=== PATIENT | female | born 1995 | race Caucasian/White ===

== ENCOUNTER 2023-08-15 12:04 | Emergency (ER) | payer OTHER, SELFPAY ==
[2023-08-15 12:10] VITALS: BP 148/69; PULSE 75; RESP 16; TEMP 37.1; O2SAT 100; BMI 44.7
--- NOTE | 2023-08-15 12:21 | ED_ITS ---
HPI - Abdominal Pain General Chief Complaint: Abdominal Pain Stated Complaint: ABD/BACK PAIN Time Seen by Provider: 08/15/23 12:16 Source: patient Mode of arrival: walk-in History of Present Illness HPI narrative: Sudden onset pain across the low back and bilateral lower abdomen that began around 8am this morning and was associated with nausea and vomiting. No urinary symptoms. Pain is now in the mid low back and the suprapubic areas. No relief with Excedrin at home. No fever or chills. No recent injury or illness. No history of kidney stones, UC or Crohns disease. Related Data Previous Rx's Medication Instructions Recorded hyoscyamine sulfate 0.125 mg 0.125 mg PO Q6H PRN abdominal pain 08/15/23 sublingual tablet (Levsin/SL) #20 tabs ondansetron 4 mg disintegrating 4 mg PO Q6H PRN nausea and 08/15/23 tablet vomiting #20 tabs Allergies Allergy/AdvReac Type Severity Reaction Status Date / Time No Known Drug Allergies Allergy Verified 08/15/23 12:13 Exam Narrative Exam Narrative: Nurses notes and vital signs reviewed and patient is not hypoxic. afebrile General: Well-appearing and in no apparent distress. Skin: Warm, dry, no pallor noted. No rash. Head: Normocephalic, atraumatic. Neck: Supple, non-tender. Eye: Pupils are equal, round and EOMI. No scleral icterus. Cardiovascular: Regular Rate and Rhythm without murmur, gallop or rub. Respiratory: No accessory muscle use or respiratory distress. Lungs are clear to auscultation, no wheezing, rales or rhonchi Back: No midline thoracic or CVA tenderness. Midline lower lumbar vertebral tenderness. Musculoskeletal: normal ROM, no calf or popliteal tenderness, no lower extremity edema/swelling GI: Abdomen is soft, non-distended. Normal bowel sounds. No masses appreciated. Suprapubic tenderness to palpation only. No rebound, guarding, or rigidity noted. Neurological: A&O x4. No cranial nerve dysfunction observed. No truncal ataxia. Moves all extremities. Sensation intact. Psychiatric: Cooperative and interactive. Normal mood and affect. Constitutional Vital Signs, click to edit/add: Last Vital Signs Temp 98.8 F 08/15/23 12:10 Pulse 75 08/15/23 12:10 Resp 16 08/15/23 12:10 BP 148/69 H 08/15/23 12:10 Pulse Ox 100 08/15/23 12:10 Course Vital Signs Vital signs: Vital Signs Temperature 98.8 F 08/15/23 12:10 Pulse Rate 75 08/15/23 12:10 Respiratory Rate 16 08/15/23 12:10 Blood Pressure 148/69 H 08/15/23 12:10 Pulse Oximetry 100 08/15/23 12:10 Temperature 98.8 F 08/15/23 12:10 Pulse Rate 75 08/15/23 12:10 Respiratory Rate 16 08/15/23 12:10 Blood Pressure 148/69 H 08/15/23 12:10 Pulse Oximetry 100 08/15/23 12:10 MDM - Abdominal Pain MDM Narrative Medical decision making narrative: Peripheral IV established and blood drawn and sent for testing. I also asked the patient to give us a urine sample. Patient was ordered to receive normal saline IV fluid, IV Toradol and IV Zofran. She was ordered to undergo noncontrast CT scanning of the abdomen & pelvis. WBC elevated at 12.8. CMP unremarkable and Lipase negative. UA also negative. CT abd/pelvis revealed no worrisome pathology or other findings to account for the patient's pain. She was informed of results and discharged home with prescriptions for Levsin and Zofran and recommendation to maintain a soft bland diet until symptoms resolve. ED return if she worsens. Lab Data Attestation: I reviewed the patient's lab results. Labs: Lab Results 08/15/23 08/15/23 Range/Units 12:25 12:29 WBC 12.8 H (4.0-11.0) 10^3/uL RBC 4.93 (4.20-5.40) 10^6/uL Hgb 12.9 (12.0-16.0) g/dL Hct 41.7 (36.0-48.0) % MCV 84.6 (81.0-99.0) fL MCH 26.2 L (26.7-34.0) pg MCHC 30.9 (29.9-35.2) g/dL RDW 13.9 (11.0-15.0) % Plt Count 405 (150-450) 10^3/uL MPV 10.1 (9.5-13.5) fL Neut % (Auto) 70.0 (43.0-75.0) % Lymph % (Auto) 22.6 (20.5-60.0) % [place] % (Auto) 5.7 (1.7-12.0) % Eos % (Auto) 1.0 (0.9-7.0) % Baso % (Auto) 0.4 (0.2-2.0) % Neut # (Auto) 9.0 H (1.4-6.5) 10^3/uL Lymph # (Auto) 2.9 (1.2-3.8) 10^3/uL [place] # (Auto) 0.7 (0.3-0.8) 10^3/uL Eos # (Auto) 0.1 (0.0-0.7) 10^3/uL Baso # (Auto) 0.1 (0.0-0.1) 10^3/uL Abs Immat Gran (auto) 0.04 H (0.00-0.03) 10^3/uL Imm/Tot Granulo (auto) 0.3 (0.0-0.5) % Sodium 142 (136-145) mmol/L Potassium 4.3 (3.5-5.1) mmol/L Chloride 107 (98-107) mmol/L Carbon Dioxide 24.7 (21.0-32.0) mmol/L Anion Gap 14.6 BUN 16.0 (7.0-18.0) mg/dL Creatinine 1.07 H (0.55-1.02) mg/dL Est GFR ( Amer) >60 (>=60) Est GFR (Non-Af Amer) >60 (>=60) BUN/Creatinine Ratio 15.0 Glucose 121 H (74-106) mg/dL Calcium 9.3 (8.5-10.1) mg/dL Total Bilirubin 0.2 (0.2-1.0) mg/dL AST 12 L (15-37) U/L ALT 25 (14-59) U/L Alkaline Phosphatase 69 (46-116) U/L Total Protein 7.6 (6.4-8.2) g/dL Albumin 3.6 (3.4-5.0) g/dL Globulin 4.0 g/dL Albumin/Globulin Ratio 0.9 Lipase 32.0 (16.0-77.0) U/L Urine Color Lt. yellow (YELLOW) Urine Clarity Clear (CLEAR) Urine pH 6.0 (5.0-9.0) Ur Specific [place] 1.010 (1.005-1.025) Urine Protein Negative (NEG/TRACE) mg/dL Urine Glucose (UA) Negative (NEGATIVE) mg/dL Urine Ketones Negative (NEGATIVE) mg/dL Urine Occult Blood Negative (NEGATIVE) Urine Nitrite Negative (NEGATIVE) Urine Bilirubin Negative (NEGATIVE) Urine Urobilinogen 0.2 (0.2-1.0) EU/dL Ur Leukocyte Esterase Negative (NEGATIVE) Imaging Data CT scan - abdomen: Radiologist's impression: ITS Impressions Abdomen/Pelvis CT 08/15/23 13:00 IMPRESSION: No acute abnormality in the current study. Electronically authenticated by: BLU CADET Date: 08/15/2023 13:17 Discharge Plan Discharge Chief Complaint: Abdominal Pain Clinical Impression: Abdominal pain Patient Disposition: Home, Self-Care Time of Disposition Decision: 13:43 Prescriptions / Home Meds: New hyoscyamine sulfate [Levsin/SL] 0.125 mg tablet, sublingual 0.125 mg PO Q6H PRN (Reason: abdominal pain) Qty: 20 0RF ondansetron 4 mg tablet,disintegrating 4 mg PO Q6H PRN (Reason: nausea and vomiting) Qty: 20 0RF Instructions: Abdominal Pain (ED) Stand Alone Forms: Portal Instructions Referrals: Physician,Non-Staff, MD [Primary Care Provider] - 1 week
[2023-08-15 12:41] LABS: Bilirubin Urine NEGATIVE (NEGATIVE); Blood Urine NEGATIVE (NEGATIVE); Clarity Urine CLEAR (CLEAR); Color Urine LT. YELLOW (YELLOW); Glucose Urine UA NEGATIVE (NEGATIVE); Ketones Urine NEGATIVE (NEGATIVE); Leukocyte Esterase Urine NEGATIVE (NEGATIVE); Nitrite Urine NEGATIVE (NEGATIVE); Protein Urine NEGATIVE (NEG/TRACE); Urobilinogen Urine 0.2 EU/dL (0.2-1.0)
[2023-08-15] MEDS: KETOROLAC TROMETHAMINE 30 MG/ML VIAL IVP (12:44)
[2023-08-15] MEDS: 0.9 % SODIUM CHLORIDE 1,000 ML 999 ML IV (12:44)
[2023-08-15] MEDS: ONDANSETRON PF 4 MG/2 ML VIAL IV (12:44)
[2023-08-15 12:47] LABS: Urine Microscopic Indicated NO
[2023-08-15 12:49] LABS: Basophils Absolute Auto 0.1 10^3/uL (0.0-0.1); Basophils Percent Auto 0.4 % (0.2-2.0); Eosinophils Absolute Auto 0.1 10^3/uL (0.0-0.7); Hematocrit 41.7 % (36.0-48.0); Hemoglobin 12.9 g/dL (12.0-16.0); Immature Granulocytes Abs Auto 0.04 10^3/uL (0.00-0.03); Immature Granulocytes Pct Auto 0.3 % (0.0-0.5); Lymphocytes Absolute Auto 2.9 10^3/uL (1.2-3.8); Lymphocytes Percent Auto 22.6 % (20.5-60.0); Mean Corpuscular HGB Conc 30.9 g/dL (29.9-35.2); Mean Corpuscular Hemoglobin 26.2 pg (26.7-34.0); Mean Corpuscular Volume 84.6 fL (81.0-99.0); Mean Platelet Volume 10.1 fL (9.5-13.5); Monocytes Absolute Auto 0.7 10^3/uL (0.3-0.8); Monocytes Percent Auto 5.7 % (1.7-12.0); Platelet Count 405 10^3/uL (150-450); Red Blood Count 4.93 10^6/uL (4.20-5.40); Red Cell Distribution Width 13.9 % (11.0-15.0); White Blood Count 12.8 10^3/uL (4.0-11.0)
[2023-08-15 12:52] LABS: Alanine Aminotransferase 25 U/L (14-59); Albumin Globulin Ratio 0.9; Albumin Level 3.6 g/dL (3.4-5.0); Alkaline Phosphatase 69 U/L (46-116); Anion Gap 14.6; Aspartate Amino Transferase 12 U/L (15-37); Bilirubin Total 0.2 mg/dL (0.2-1.0); Calcium 9.3 mg/dL (8.5-10.1); Carbon Dioxide 24.7 mmol/L (21.0-32.0); Chloride 107 mmol/L (98-107); Estimated GFR (African America >60 (>=60); Estimated GFR (Non-African Ame >60 (>=60); Glucose 121 mg/dL (74-106); Potassium 4.3 mmol/L (3.5-5.1); Sodium 142 mmol/L (136-145); Total Protein 7.6 g/dL (6.4-8.2)
--- NOTE | 2023-08-15 13:00 | CT_ITS ---
The [address] [address] Patient Name: EBONY PALOMARES MRN: [id number] date: 1995 Sex: F Assigned Patient Location: ER Current Patient Location: ER Accession/Order Number: [id number] Exam Date: 08/15/2023 12:53 Report Date: 08/15/2023 13:17 At the request of: GLEN AGUILAR Procedure: CT abdomen pelvis wo con CT abdomen pelvis wo con, 08/15/2023 12:53 PM EST INDICATION: lower abdominal pain COMPARISON: There is no appropriate prior study for comparison. TECHNIQUE: Axial images of the abdomen and pelvis were obtained without the administration of IV contrast. Multiplanar reformatted images were generated and reviewed as needed. Dose reduction techniques were achieved by using automated exposure control and/or adjustment of mA and/or kV according to patient size and/or use of iterative reconstruction technique. FINDINGS: Lungs: The base of lungs is clear. No pleural effusion is noted. Mild hiatal hernia is noted. Liver and gallbladder: The liver and gallbladder are unremarkable. No enlargement of intra or extrahepatic biliary ducts. Genitourinary system: No hydronephrosis. No nephrolithiasis. No abnormality of the urinary bladder is noted. No abnormality of the uterus or adnexa is noted. Other solid abdominal organs: adrenal glands, pancreas, and spleen are unremarkable. Aorta: The infrarenal abdominal aorta is nonaneurysmal. Free fluid: There is no free fluid in the abdomen pelvis. Lymph node: No lymph node enlargement by size criteria is noted. Stomach and Bowel: No abnormality of the stomach is noted. No abnormality of small or large bowel is noted. Bone: There is no suspicious osteolytic or osteoblastic lesion. CT/CT abdomen pelvis wo con IMPRESSION: No acute abnormality in the current study. Electronically authenticated by: BLU CADET Date: 08/15/2023 13:17
== END 2023-08-15 14:08 | disposition home or self-care (01) ==
PROVIDERS: Emergency Provider Emergency Medicine
DX: R10.9 Unspecified abdominal pain (principal)
CPT/HCPCS: 36415; 74176; 80053; 81003; 83690; 85025; 96374; 96375; 99284; J1885; J2405

== ENCOUNTER 2023-10-25 15:54 | Emergency (ER) | payer OTHER, SELFPAY ==
[2023-10-25 15:58] VITALS: BP 158/100; PULSE 95; RESP 18; TEMP 36.7; O2SAT 100; BMI 36.7
--- OUTSIDE RECORDS SUMMARY | 2023-10-25 16:01 | XMS_ITS | CCD ---
Author Organization [facility] Care Team Providers Care Air Traffic Control Manager Name Role Phone REQUEST, DR NONE LISTED Primary Care Unavaila REMINGTON Christian Admitting Unavailable REMINGTON OTTO Attending Unavailable REMINGTON OTTO Consulting Unavailable SASCHA ALEJANDRA Primary Care Physician Reginald Esparza Attending Unavailable Yovany Harkins Attending Unavailable Nino BUCIO Attending Unavailable Medications Current Medications Medication Drug Class(es) Dates Sig (Normalized) Sig (Original) ibuprofen 600 mg oral tablet (1 source) Nonsteroidal Anti-inflammatory Drug Start: 07-19-2021 take 1 tablet by mouth every six hours ibuprofen 600 mg Tab 600 mg = 1 tab(s), Oral, q6hr, # 40 tab(s), Refills(s) 0 Start Date: 07/19/21 Status: Ordered penicillin v potassium 500 mg oral tablet (2 sources) Start: 03-23-2022 End: 03-30-2022 take 1 tablet by mouth three times daily penicillin V potassium 500 mg Tab 500 mg, Oral, TID, X 7 day(s), # 21 tab(s), Refills(s) 0 Start Date: 03/23/22 Stop Date: 03/30/22 Status: Ordered Start: 07-19-2021 take 1 tablet by nohemi th every six hours penicillin V potassium 500 mg Tab 500 mg = 1 tab(s), Oral, q6hr, # 40 tab(s), Refills(s) 0 Start Date: 07/19/21 Status: Ordered Multivitamins (1 source) Start: 02-07-2014 take 1 tablet by mouth once daily Multivitamins 1 tab(s), Oral, Daily, Refill(s) 0 Start Date: 02/07/14 Status: Ordered Completed/Discontinued Medications Medication Drug Class(es) Dates Sig (Normalized) Sig (Original) naproxen 500 mg oral tablet (1 source) Nonsteroidal Anti-inflammatory Drug Start: 03-23-2022 take 1 tablet by mouth twice daily naproxen 500 mg Tab 500 mg = 1 tab(s), Oral, BID, Take one tab by mouth two times a day, # 14 tab(s), Refills(s) 0 Start Date: 03/23/22 Status: Ordered Problems Active Problems Problem Classification Problem Date Documented Date Episodic/Chronic Bacterial infection; unspecified site (1 source) Chlamydia trachomatis infection 02-26-2014 Episodic Chronic obstructive pulmonary disease and bronchiectasis (1 source) Chronic bronchitis 10-12-2013 Chronic Disorders of teeth and jaw (5 sources) Other specified disorders of teeth and supporting structures; Translations: [Periapical abscess without sinus] Onset: 07-19-2021 Episodic Other nutritional; endocrine; and metabolic disorders (1 source) Obesity 02-07-2014 Chronic Substance-related disorders (1 source) Smoker 07-19-2021 Chronic Comment on above: Added secondary to d ocumentation in Social History. Unclassified (1 source) Infection( Confirmed ) 02-20-2014 Unclassified (1 source) Urinary tract infections, frequent( Confirmed ) 02-20-2014 Past or Other Problems Problem Classification Problem Date Documented Da te Episodic/Chronic Unclassified (1 source) Onset: 02-19-2014 Resolved: 08-01-2015 08-07-2015 Results Test Name Value Interpretation Reference Range [facility]il [facility] Documentson 05-20-2022 Penitentiary Documents [id number]# 1.00CD:127 Normal [facility] Coding Summary.on 03-24-2022 Coding Summary. CD:[id number] G h0bWw+PGhlYWQ+FG3DFDI nX80ssCOltH2LE9oZSL9I XPUAZUPJKX4IUX6npJX9E MrlA2YijqAf AukbwSLoJS62UDs7XNB3w XeqQQkjzJ4jcGJgK6v4Wh PhMF86sX14YLzyOBIyTuP 3LjZpbjsgbWFy E8tvRgNdfFLfPxm+PHRhY mxlIHdpZHRoPScxMDAlJy LknYzxLN5gSt5fAYMqBSU vbGxhcHNlOiBj v7xmHNTkPKxrSB6txUpeG 9YpuGN3CQZyi6k9Xv07oL I+NQGyNFA2aBujFUoyu47 2SaEka4bxSGV0 hOYnKCboGSX5P14wu7L8C HUlCXWuOXT3xKY0xI7zeL hwvoqtB3FkhQCxSxU2TQP 8jOJjiC6stTkn qixplI2aJax+R61KPQ6MK PBJYI3ACmk0K8NgOwdgkL I+VU48JTGaVL49tIXvjAT wu8ygnLa4AjIf RDXiNFU0sRblGRhmp8JaM XObY11ptJBar1W3KUIluN lazBMnPxNrvFX9hU0yFCm axkjja4giothy Azzkm3flgh50mF44H84uS EobBPTdEEQ8GKQdPCMnjP aafh1gaD9hRy4+DXzhc7v vo4edvOq1BeBo DPAotvZktRdbQJW2j4ShO c27C6FmuWsya7RlXbt2mc 45aCOqz6B8aNS8PUbuEHT qiM8eSQuhDrK0 QAQvOyCasV66lUBrYEifK t4qvBfwfEgjUQ9gUPMxjv hpSKPlnG2fCIRysTIdqUi xCF1zUVRacmip h438JuSyMKB2FELhiLOjY 6KdgN9kAcPnUGGxIXQaT9 VniDIsKDeaG484BWkyLgQ 7NNUfdyKrM2Su IDQzbRrsOkG7s9Z5Gb3Pg 7HcblvvLDH8JRpvCKJ1Sh Z9JqSdJhO4R2KeQav1QFB qrZwjNP2kD8De JKVshnlqkzofeYV5NYOjA UUxvX93iLWdBYoyKu2cl3 O2d411QJVdMEUatQ49Tc4 udDogMTBwdCBU qD5lpccho3tbubveXvQvD SPuXMn2LUx0QHUztGaiKo VzDRV1BhY8NPD9iJCwvJ8 oaPhcjxirdP5z Oyc+J09mbE3aRLH6ESO0k ptzZYDffbSiTH87DQ72N1 RyPjwvdGFibGU+PGRpdiB cjBnrAT5bYcWk z5xma0UcQBddU0SrZZZnF XbbXll0MJWxBPH3yGC2fV 0xGFMlIJkct1C3rMT3R9I yniEqih8bp9ub DBYuBQzzC02yeJFit7S9X EHwzOI2ANUxbXbzMyUpyJ 93Oyc+BINfsNumr9LrVjh ly0hbo8kleId7 YzFwQGQathJbrIriPAS1o 6WoTp42Q49mFSftDSJvMA FmJSWaHMFatZiyqy7otS4 wIi8+PGNvbCB3 uBJ2dF8bVFZpLtI0OGzxW 825UfWjzVIoKrgxv4jbg1 ysjZi8RzTiNINpucWgaVo cPDA5o9UjLl18 G16wTXarLSAgJQUwSDQlY LPagZspms9rgR8cHf9+PC 7jf9oeja57bU63sVN+PHR vBKR6tZevQXef QJAvxP7lYVpjFmY9XWXnO yWaaK03rJJnXWzpPh4nlS nkjKcuLG8fLHKttyltl31 0NgWpe8hmNZZh kYRqGOvsBFL3D09jr6R8V BUbIXMrCON7sWD8hM4myB lnbjogbGVmdDsgdmVydGl zCLbaCEvdW607 IHRvcDsnPlBhdGllbnQgT wRqGPj8K8NsRbb9TVPtgA otSR6giYDcFLilJw6jbUh wrLekXA6uIXRr ebprs389EhSrl7ohZZAjf KBtPJmlUXO4I24ve0M3GX HbFIEqLGB3dOS1zZ4yvMm nbjogbGVmdDsg zfFboSlwMHftSEofZ819G HRvcDsnPkJpcnRoIERhdG W3MN35RH95mNYzy0X3oZR 0V7NfXURsfxaa hzfsjHJ2BLDsKZNgdT31S p3zhQygRn0kEUJrHHQ0IG QxqAHoU2KtyN2vQbUkODZ kGEFxD7XxwJGu VAocS657VJgeSuL7BIYon aDbN9ZhLSMeeTyjCzA9f9 M4Kw6YA4E1AD75OO13hZA vm7M3oZM4B5Mc DBFmgwuvbuqycEB9EEZgB WRpoH79Bz3zyUvlKn7bOO NiBCE8VHEkjQJmJ0LbyC6 yOiAjMDAwMDAw X7JonNDxRIwbH896GHmrL oZ0DFKwhjUrH1CfJCOavP tqDvV0g6Y0Ta1WQFk4OF6 8QS64rIXfi9X0 qRL1C9UnACNeinoucjraf DH2AKShAFBcdL66Pl9dfK ibUr9gLYQjVYV6UUUwnGF bM4BhnF8sXzAi BFWjSILnF2GyoSSjETvwD 582BQufCtB5KYMudwEfA0 FnDQXtnXidVwX0c2N9Ko6 OFLCySP42XGP5 cRD4HW71LS71R7EuHlvtj GFibGU+PHRhYmxlIHdpZH RoPScxMDAlJyBzdHlsZT0 wRe7lTNRzNGKq sAcomCWgSbRem5cvSFFtE TunAR9noLqaX9RofVB2PM Vjb4j5Fk13K31nL6XblTA +TJHtqHE0fJH3 jK3sMjAbNpH4HYprL703V iBhiDWvHaekj6byg3wllU x6GmQ6ATSsxiBkhNhmLJC 7y0ViYp04O65m IHdpZHRoPSIxNSUiIHZhb Atpqc8erZ3yLg6+PGNvbC R2hKF9fE5kLeTuPaL5DDo rO295YiGrfDHc Ysbth7znr9robXj8FpQiG FCdgnLmjZzxAEX4y2BhPe 99M7NbxQazd2KvJhh5sm7 8jORlf7V1zMV6 T3XoWSVghzqwqSNuzLzgD V5oPLEyvvepDXMpbU5uCW ZaR9h2LfYuYhH7WKrpN8P ivjA5WBCmiZDs CTybUGK3C46dc3Z4GSKuE IBmBRH6yXU6nS2gaCqqyx ogbGVmdDsgdmVydGljYWw nHFxtO910SGFw iBabSIKegT8wKVYksLNgo RfbKD8wLJIvhblgRt8WMD TTORGVVBCDPZyBHZ98V0M sRhd4UQExfYvd LH5lyTGjSLgnEq4coErsk LusAC7zYBYghocjRPIovE 3hKLUcgGCliIjnWR6xSIV hgbxrk407VzMf INI5ABRtiIQfF7AfeP4jO zFgSNRcJVNyU7HrgTBaEB ycO105HUbiZtW0UCRdafS iV4NtZRXmjTtz OhF7s5C7Nb1fQz4qCF7sT Tn0JX49VX80iQDib9Z8iL N2D7BsJGGikwtipiibvZU 1LXEiMDSxpV26 rDDeCBmgKa1xw1G1y113Q ROlWWKpgI88Cb2raEmjPG VgqGTOnY0wbmqqe6actqn gIzAwMDAwMDt0 VYq8TEUueQuwFhXoQNP2G zY0JEH4wPLfeM2ezWnzuo twvE8vXko+MjYgWWVhcnM 5S1JwKqd8HIQg cVzkXP2gxDRqSRcoQs4cp QdftVjcLF3xSSAxucfvDP MnqE8dEUWzyVJrqNlgYB3 zUBZcshkpq669 IuYgLQG6VJCfrKXcH2Pus U4mJbWaHFHaTBFtJ3FknS RiMWdrE956KDjnSjV2PPL dlaRgC6DfZSMa rDepIhB1l4M9Rz5GGX1xd ZH5V4MzBwy6OATejNquNE 1jnHIhTGadRk7xzJmwnPi fZQ5oZRKzualf ROUsnT8eSTMoeWWsuOguS T7oJOZbtpxea563HtRvDR N0CFOrzBWbH5YnvP7kDaZ fPAQvPGFsF1Wj hJEhVOzeX622UNpyCyN0O QHzyvZaY5TsEDAeqQajZp T4j5B9Qs2OjTQtG3ImU8p 5B0KuWsikdSK+ IG76MCMgSJ60bIQodWXuu 8wxjMf8OzGfTJJaURI8iS vlIDsmc2CyIYUbV63qdLU gl0M7QQAhtBib kVWsDtRpaQC9kT5eISvrh tvih2zibmvpLbybt4ryaa 45iM36J54dGGbvTMSmLND zMCUiIHZhbGln lg0ifV2mYn4+RVVbeUR7y AB4oR3sJxOyKzY8BKdsQ4 60YcEfiWFqLxrlr8usk7d riGf3YeHsIMBj dwEnvRpjJEN9h8SmXu87J 29sIHdpZHRoPSIyMCUiIH YioAsnug0zaQ5xBc8+PC9 ox1kbiz56fN10 dHI+MLXuYGY5qFjpQUjcS SOroO3jZYspJkM4RFZwBv KybV00iXJlNYcwHa5hqWu ylQjhVU0nXSBp lkjdr736XuIbp2reIQIqy DDsPMecZYY2Y22vp1J7WX LpDANsQDU2lHB3aY8aaIc nbjogbGVmdDsg kxGjuPzfYNdaXAtgS883S UXwuNqqPvTimDIcQ1uttx MHCL0iNmsoyRP+PHRkIHN 0eWxlPSdwYWRk iR0wAYBpP8o5GwDqFkV4K DowP8RyrdD2KKXygOWuEB OtpTSHiP0varvco1phibk gIzAwMDAwMDt0 NFf1ZMIkiOojBfPgFPB7C lZ8ZLV8oJFbkC6cpKylen ojiW7oMji+RklOOjwvdGQ +CYCcTAL5nFmp MFrtBYDxxN1kNJDoY5y2B vYzPvD1MRgzB9HktbB4AY VyvUFrTHZdyHMSiE9ekeq cz7acfzniNxXn DQGgKEq9GEg7WCUmcTotV eUtBJY0QjH1UCN2rHDxbY 7zoPrxowveqR3aIfd+TVJ OOjwvdGQ+PHRk FJC8zTgxYWygURQanN3sJ NAvJ4f4GiVxVkM7MLdzF4 PwkoX5RABliSIkOLIjsWA CvR6wccehm4zq gyfpFrLuBJBtBIk3AYg4B YGixUkiInVjLPB7ZhG4ZF G9jLPglR0ziLkvrcyjvA0 wOyc+UTT2CXX9 GT31QC83M0VyKgvjqQOnx +PHRhYmxlIHdpZHRoPS cnSCDiGbKyuLtrSS1dSd7 yZGVyLWNvbGxh cHNl (more content not included)... Normal [facility] Consent for Treatmenton 03-02 Consent for Treatment [id number]#1 .00CD:127 Normal [facility] Discharge Instructionson Discharge Instructions [id number] #1.00CD:127 Normal [facility] ED Clinical Summaryon 2021 ED Clinical Summary [place] [id number] ED Clinical Summary Person Information Name: EBONY PAL[place]ARES [place] Age: 26 Years : 1995 Sex: Female Language: German PCP: SASCHA ALEJANDRA DO Marital Status: Phone: [phone] Visit Id: Visit Reason: Mouth pain; MOUTH INFECTION Speciality: Acuity: 5 Enc Type: Emergency Med Service: Emergency Arrival: 03/23/2022 07:24:08 Discharge: 03/23/2022 07:40:57 LOS: 000 00:16 Checkin: 03/23/2022 07:24:08 Checkout: 03/23/2022 07:40:57 Dispo Type: Home (Routine DC) EVENTS: Event Name Event Status Request Date/Time Start Date/Time Complete Date/Time Arrive Complete 03/23/2022 07:24:08 03/23/2022 07:24:08 03/23/2022 07:24:08 Document Home Meds Request 03/23/2022 07:24:08 Triage Complete 03/23/2022 07:24:08 03/23/2022 07:30:46 03/23/2022 07:30:46 Bed Assign Complete 03/23/2022 07:26:45 03/23/2022 07:26:45 03/23/2022 07:26:45 Dr Exam Complete 03/23/2022 07:26:45 03/23/2022 07:29:46 03/23/2022 07:29:46 RN Exam Complete 03/23/2022 07:26:45 03/23/2022 07:32:21 03/23/2022 07:32:21 Registration Request 03/23/2022 07:29:46 Discharge Complete 03/23/2022 07:32:05 03/23/2022 07:41:02 03/23/2022 07:41:02 Transfer Complete 03/23/2022 07:41:02 03/23/2022 07:41:02 03/23/2022 07:41:02 ADDR[place]: [place] [id number] PHYS DOC NOTES: MEDICAL INFORMATION: Prescriptions Given: New Medications Printed Prescriptions naproxen (naproxen 500 mg Tab) 1 Tablets By Mouth 2 times a day. Take one tab by mouth two times a day. Refills: 0. Medications to Continue Taking That Have Changed Printed Prescriptions START: penicillin V potassium (penicillin V potassium 500 mg Tab) 500 Milligram By Mouth 3 times a day for 7 Days. Refills: 0. Other Medications START: penicillin V potassium (penicillin V potassium 500 mg Tab) 1 Tablets By Mouth every 6 hours. Refills: 0. Medications to Continue with No Changes Other Medications ibuprofen (ibuprofen 600 mg Tab) 1 Tablets By Mouth every 6 hours. Refills: 0. multivitamin, ( Multivitamins) 1 Tablets By Mouth every day. PATIENT EDUCATION INFORMATION: Instructions: Follow up: With: Address: When: Dental: [facility] [phone] In 3 days 03/26/2022 With: Address: When: Dental: [place] [facility] [phone] In 3 days 03/26/2022 With: Address: When: Dental: [facility] [phone] In 3 days 03/26/2022 DIAGNOSIS: Odontalgia Normal [facility] ED Note-Physicianon 03-23-20 ED Note-Physician Basic Information Time Seen: Yovany Harkins DO 03/23/2022 07:29 Chief Complaint patient c/o upper right tooth infection. patient states the pain shoots back to ear History of Present Illness 26-year-old female comes to the ED for evaluation of dental pain. Over last couple of days she has had pain to the right maxillary region. Today she developed some bleeding when she was brushing her teeth. No fever, chills, nausea or vomiting. No other drainage from the area. No difficulty with speaking or swallowing. No prior treatments. No concern for . Review of Systems A 10 point review of systems is negative except as noted above. Medical and Surgical History: Reviewed and noted Social history: Lives at home Tobacco: Denies Physical Exam Vitals & Measurements T: 36.6 ?C(Oral) HR: 79(Peripheral) RR: 18 BP: 132/90 SpO2: 100% HT: 163 cm HT: 163.0 cm WT: 91 kg WT: 91.0 kg BMI: 34.25 Nurses notes and vital signs reviewed and patient is not hypoxic. General: The patient appears well, no acute distress. Skin: Warm, dry. Head: Atraumatic. Neck: No soft tissue swelling. Eye: Normal conjunctiva. Ears, Nose, Mouth, and Throat: Tenderness around the #03 tooth with gingival erythema. No swelling. No evidence of abscess formation. No dental instability or bleeding. No tonsillar hypertrophy or exudates. Uvula is midline. No associated stridor, trismus or drooling. Cardiovascular: Strong distal pulses. Chest wall: Respiratory: Respirations are nonlabored. Back: Normal range of motion. Musculoskeletal: Normal ROM with no gross deformity. Gastrointestinal: Urological: Neurological: Awake and alert. No focal deficits. Follows commands. Psychiatric: Cooperative. Medical Decision Making No evidence of acute fractures. No trismus, stridor or drooling. No evidence of abscess formation requiring incision and drainage. No fever or chills. No airway compromise. Patient treated with pain medications and antibiotics. Given dentistry follow-up. Patient was encouraged to return to the ED if symptoms worsen or change. Assessment/Plan Odontalgia (K08.89: Other specified disorders of teeth and supporting structures) Disposition Plan Patient Discharge Condition Disposition: Discharged home Condition: Improved and stable Counseled: Patient and/or family were counseled to workup, results, treatment plan and follow-up recommendations Discharge Prescription List Prescriptions naproxen 500 mg Tab, 500 mg= 1 tab(s), Oral, BID penicillin V potassium 500 mg Tab, 500 mg, Oral, TID Follow-up With When Contact Information Dental: [facility] [phone] In 3 days 03/26/2022 EDT Additional Instructions: Dental: [facility] [phone] In 3 days 03/26/2022 EDT Additional Instructions: Dental: [facility] [phone] In 3 days 03/26/2022 EDT Additional Instructions: Attestation Patient seen and evaluated by the physician bilingual executive assistant. Attending physician was present in the emergency department and supervised care. This visit was performed by both the physician and an APC. I performed all aspects of the MDM as documented. This report was transcribed using voice recognition software. Every effort was made to ensure accuracy, however, inadvertently computerized rotating equipment specialist mistakes may be present. Appropriate healthcare PPE was used in evaluating this patient. The patient was placed in a mask. The healthcare provider was wearing mask, gloves, and utilizing proper hand hygiene. All equipment was properly cleansed. Problem List/Past Medical History Ongoing Chlamydia Chronic bronchitis Obesity 31-JAN-2014 12:37:00<$> Smoker Historical Medications Inpatient No active inpatient medications Home ibuprofen 600 mg Tab, 600 mg= 1 tab(s), Oral, q6hr naproxen 500 mg Tab, 500 mg= 1 tab(s), Oral, BID penicillin V potassium 500 mg Tab, 500 mg= 1 tab(s), Oral, q6hr penicillin V potassium 500 mg Tab, 500 mg, Oral, TID Multivitamins, 1 tab(s), Oral, Daily Allergies No Known Allergies Social History Alcohol - Denies Alcohol Use, 03/03/2014 Substance Abuse - Denies Substance Abuse, 03/03/2014 Tobacco 10 or more cigarettes (1/2 pack or more)/day in last 30 days Tobacco Use:., 07/19/2021 Lab Results No qualifying data available. Diagnostic Results No qualifying data available. Normal [facility] Comment on above: Result Comment: Elec tronically Signed By: Hola Dorsey PA-C\.br\Date and Time Signed: 03/23/22 07:52 EDT\.br\Electronically Co-Signed By: Yovany Harkins DO\.br\Date and Time Co-Signed: 03/23/22 14:10 EDT ED Patient Education Noteon 03-23-2022 ED Patient Education Note Normal [facility] ED Patient Summaryon 022 ED Patient Summary [place] [id number] Patient Discharge Instructions Person Information Name: EBONY PALOMARES Age: 26 Years Arrival Date: 03/23/2022 07:24:08 Discharge Diagnosis: Odontalgia Primary Care Physician: SASCHA ALEJANDRA DO Provider Information Primary Provider: Yovany Harkins DO Advanced Cartridge Loading Operator:None The exam and treatment you received in the Emergency Department were for an urgent problem and are not intended as complete care. It is important that you follow up with a doctor, nurse practitioner, or physician?s bilingual executive assistant for ongoing care. If your symptoms become worse or you do not improve as expected and you are unable to reach your usual health care provider, you should return to the Emergency Department. We are available 24 hours a day. EBONY PALOMARES has been given the following list of patient education materials, prescriptions and follow-up instructions: Follow-up Instructions: With: Address: When: Dental: [facility] [phone] In 3 days 03/26/2022 With: Address: When: Dental: [place] [facility] [phone] In 3 days 03/26/2022 With: Address: When: Dental: [facility] [phone] In 3 days 03/26/2022 In the event that this physician does not participate in your insurance network, please consult with your insurance company to find a nearby participating provider. Patient Education Materials: A MESSAGE TO ALL PATIENTS REGARDING OPIOIDS PRESCRIPTION OPIOIDS: WHAT YOU NEED TO KNOW Prescription opioids can be used to help relieve iqppjiak-bw-wblash pain and are often prescribed following a surgery or injury, or for certain health conditions. These medications can be an important part of the treatment but also come with serious risks. It is important to work with your healthcare provider to make sure you are getting the safest, most effective care. WHAT ARE THE RISKS AND SIDE EFFECTS OF OPIOID USE? Prescription opioids carry serious risks of addiction and overdose, especially with prolonged use. An opioid overdose, often marked by slowed breathing, can cause sudden . The use of prescription opioids can have a number of side effects as well, even when taken as directed: ? Tolerance?meaning you might need to take more of the medication for the same pain relief ? Physical dependence?meaning you have symptoms of withdrawal when a medication is stopped ? Increased sensitivity to pain ? Constipation ? Nausea, vomiting, and dry mouth ? Sleepiness and dizziness ? Confusion ? Depression ? Low levels of testosterone that can result in lower sex drive, energy, and strength ? Itching and sweating RISKS ARE GREATER WITH: ? History of drug misuse, substance use disorder, or overdose ? Mental health conditions (such as depression or anxiety) ? Sleep apnea ? Older age (65 years and older) ? Avoid alcohol while taking prescription opioids. Also, unless specifically advised by your health care provider, medications to avoid include: ? Benzodiazepines (such as Xanax or Valium) ? Muscle relaxants (such as Soma or Flexeril) ? Hypnotics (such as Ambien or Lunesta) ? Other prescription opioids KNOW YOUR OPTIONS Talk to your health care provider about ways to manage your pain that don?t involve prescription opioids. Some of these options may actually work better and have fewer risks and side effects. Options may include: ? Pain relievers such as acetaminophen, ibuprofen, and naproxen ? Some medication that are also used for depression or seizures ? Physical therapy and exercise ? Cognitive behavioral therapy, a psychological, goal-directed approach, in which patients learn how to modify physical, behavioral, and emotional triggers of pain and stress. IF YOU ARE PRESCRIBED OPIOIDS FOR PAIN: ? Never take opioids in greater amounts or more often than prescribed. ? Follow up with your primary health care provider. o Work together to create a plan on how to manage your pain. o Talk about ways to help manage your pain that don?t involve prescription opioids. o Talk about any and all concerns and side effects. ? Help prevent misuse and abuse o Never sell or share prescription opioids. o Never use another person?s prescription opioids. ? Store prescription opioids in a secure place and out of reach of others (this may include visitors, children, friends, and family). ? Safely dispose of unused prescription opioids: Find your community drug take-back program or your pharmacy mail-back program, or flush them down the toilet, following guidance from the Food and Drug Administration (www.fda.gov/Drugs/Re sourcesForYou). ? Visit www.cdc.gov/drugoverd ose to learn about the risks of opioids abuse and overdose. ? If you believe you may be struggling with addiction, tell your health animal care taker and ask for guidance (more content not included)... [facility] Prescriptions/Work Noteson 0 03-23-2022 Prescriptions/Work Notes [id number] #1.00CD:127 [facility] Discharge Instructionson Discharge Instructions [id number]# 1.00CD:127 [facility] Coding Summary.on 07-29-2021 Coding Summary. [id number] G h0bWw+PGhlYWQ+SB5RUMJ tV83aqCNleN9CY0xSVL4I MDSIGWSNBU4FTH3dvPA5R UiiB2VwozUv IuyszBDhHO02UNd6RQZ4x ErzXVfcsT7ehMXvF6a9Kq BtEZ42wQ95SRzcVTUwHqW 3LjZpbjsgbWFy G8lsHsUwjBGkCih+PHRhY mxlIHdpZHRoPScxMDAlJy HccTbwTD8kVk1ySEZdUAU vbGxhcHNlOiBj f3vyPYYqBVapCM9bzCtsA 7NapJW3JLFms1a5Tu94fI I+KJAgXYQ6bBwsEQjki01 0ZhExz1gvLYF5 wVShTPnwKRI4C62cu3N2T SXwTQSyHMA0bJZ4vA5roK keqkhuX2JhhZSvGwS7CRI 2iTKbcR8acZkk woamdC9oYfj+Y42ERY4KR RTMXX0DPqm2Z3AfKtdxgR I+LM56JCEdQG96pNOahHG ht7vhbRl8FwOz XTXwVKS6qKvrMFihi1MeJ OZpE21fmYRex8B7VQBiqS pzlIRoKnVfhHZ7lE3vNBq timnbg9zlifpz Lvvbj5vgmm16xS21M46sR SpaXABuGBS0VOEzEAQzdB wtty1ndW4iYf6+SFkgq7o ig8elhXc6AeHw BZRdomNhdQkdHNP8z3ItH f43U9DseCnfr9HiDba3ms 21cNQge8K6vRF6DCsrCPY otZ1wTSknNxN4 WCIzJlQdqZ65bOIsFAbcC d7jzNebuUurLM6zZTMkbl qxJNTiyT0mPSZczVLyvSf tAU6xKDUwvxkg w314AeFcERQ3FYSqxZUzF 8ItoI9uJbBzOZPaLZHiH5 BliWOoBKsiW110POubJdZ 6IVFxyfPcG1An XJAmbUncRyA1e4N8Gd1Vv 7CrkaquOLN4PTggXWExYk Z2JjHnDdF8R5MiYpe7YIS tfUtvNB9vS4Ci AMPzecirdbcllDU8CUQyE NZqaE54rIVcGBvjVa1dt3 W1j997EUPzNYXdyB97Kq6 udDogMTBwdCBU kE2xthuee7uvxeycCuDuH CUrEYi0BFt9RICgfJbhHw VhRHC1ZyG0NHM3bYUrtG3 igFvmojdovT3h Oyc+I15wjF0dDVI2XWT6e gjlODXavtYqFL33MZ80I1 RyPjwvdGFibGU+PGRpdiB yvWbjKD4bBaQc k9iyp1SvMFxqI7HzBGBbE GizZvj8ZNEhVCP3fEV1sP 4dLOQvESaji8A1zEQ5V2K vavKhbk2xa9yy QSMfKFglB75zvYPve3E0Q JOpmOG0YPZuxWreQdNhoE 93Oyc+VGWbgRpaf9RgZtj qd1dmm9bnoGm6 MvSzGRTeayFpxWetXDU0v 2NcPt26F81xARjdWETgYC LtGNWoDOEodPtcbd0ifA0 wIi8+PGNvbCB3 uWO2jV4fRBMrGaW8UHpqN 977HfPrzHTrLzhuh8cde3 dotCj8HeWzXQScudEfdMt hQFD2l9YbRg92 K15sYMmkICPfEXNbHGYnP OVugXtjfg1wjO6xRe1+PC 3ls0ziqo57hX98vTI+PHR sFPU6oBqgNFmz LDElzH1rUAocEnW7RPJpH pFzdE36sYNpGInhJh7boU nliBtfSX9jTSMullywz11 9YbKot1kkMYUc xAMwYAcdAFP6F94dk3I7G PGkRNWqIRM0bDI0jL5fjX lnbjogbGVmdDsgdmVydGl iXZpoTRelB668 IHRvcDsnPlBhdGllbnQgT oCsOWt4S5LmGgg9WCOoxT zkLQ6xxHGbGYztRi1lzUe ndAbdMR0mURHt fpwyq177AuZko1ahRPRwo PMwFQmlJJY6B89mp4Z0XW YxLDNlQUN7aZV6bB8bzXr nbjogbGVmdDsg voGcuUllOPemDCqnK691M HRvcDsnPkJpcnRoIERhdG E5KG74PR08tZCva4E3dGA 7A6FiSZLkcddh ubvkdNJ8GEWaBWWghA87N g0nyTbsOn1wPJZcKSG2EU UnrBPmF3FvpG1oPsRzWTU dBUQyN9YpyWEe JSlfN387FPryIlY2GVNby zFlQ0ViCXFpxQteUoS5e8 V7Fd1FX0W2OB17CJ84bRN ib5S4oMH2R7Mr QUGndzlfkcogwGO3ICKcF DIvgZ88Tw5azCjcHg8bOS IwTZN0UBNbyGVvA3KdqB9 yOiAjMDAwMDAw Z5LupEWzELrkZ193PQcgM dM9MHUytiPsB1CmJNNepH ijJbO7t4F1Zt5SVLy1RR9 6WB40tAFpq8A6 iGD2F9NpLILoljzlvlcud CW6XOCfCNAweR50Jm7evP zyCx6pTOXkEUR9TJFetKQ nN2OydL0mZrHg UIDqDFGpA2GcbSFcICpkY 368WPprPfX0IBCvbfEbU8 IeOTQxlRhtTbT6g7W5Ex4 YGBSnBI99SGE6 lNL8NW07BN41D4KbTynns GFibGU+PHRhYmxlIHdpZH RoPScxMDAlJyBzdHlsZT0 fVm3jQBQhKDUi kUxmpLEiOzAbn9fqGOCoF QiwXB9udAndS2AqeON2CM Fcx7w8Yu36M64hD7ZyvGY +NHXlmAC4dWY9 vS4dXvWtMkK4FKeiR774T kWbuRAiBgzyk9yyh6meaP t0YmW5MSWsoaZugMyfLVT 5h2DsZy04U24w IHdpZHRoPSIxNSUiIHZhb Kyjrr6lmV6yDv5+PGNvbC U8vTC1iK0zWdNzJkU4NKj yF572JlBixFGg Twusj9xmo5janAt0FbYvW ATjeoFyrHeyDMS5s1BrCg 06X0DheMwly0LvYzu0fx6 2vMUmc0H5iXE4 R5CzQNRyxlnbkUJubNhmL M0vTWSjnhguMWZicK6hXS SjE9o9SdIoDmJ6WVtkK6N tzwL0MHEdxGQl LXqwKMH7Q57da8B7DRGxX FXrKTW3aAE2tE5fuTtelb ogbGVmdDsgdmVydGljYWw yPPfwO951UUAl qNzhIKRonN2sLIOdmGYqn GarNA8lTIEpbyryLa6LTI ETGKDDRYLQMYzRYK19E0C yZyx6LZLqkDos TI9dwQQoCHcsAn8voNljy KcmEU6eMANnkzcpEHCthW 8sYVAdvISlcHguTH3iGSF nqqbdb729JiPu BJP0GVCvqZEvF0RzkO1bC xXoYUSiNAZqK3JbfIGvSJ nxY371RAdhGkW4VRNinmF dM5DjYHAcsVlu QcE5r2P0Sz8xVs4qBP6hL Yo6GE45IO49cTTvl8Q4cI G1A5QbSQUlyqjnkqjmgUN 1AFPtIXVvwZ65 jHBlCJqzAt1dm4H5g214W NHhIZYuyK85Uk8dxQkoLZ XomJYNzI4bthlqj1wwzlb gIzAwMDAwMDt0 KEs9RIWnjVzcSeIoJJX5I lB5WAZ2xDRtcM9fgYcdgm xajJ9gXkb+MjUgWWVhcnM 2R9VbYnx7OQEt tYznQT6dtTGoJYylLg9tf BeiwSdhTP0zUDZnfwwsTL XvsI5qJEDzdNTjsQutPK3 kOIXdhkowy029 LhRdHHM9IKVlyCWaK2Nrk I4sAgOiNSFeFCFeU2QppX YyEMdkQ774MPgrNuD0FWC yzjSmT9DnXNXt vDfcYfF8i5O2Ca3OZF9qy NH5L8YnIcq0PMZhpDcxDL 5cvWAlFBbtVh8yxCdjhNc wQL3eAJHovftg HPEooC1wTATlwQZrtFaxN T1lHFGdukeyl180TxQsSJ K2SSIkcUCtX5HgbA2rZlT wHTEnYGGrY4Mf oDUlRGncY367VVnvYnK2Z FTioxWlG9VhKMRvxQpoRj L5g1J6Cz5QcLZlW7ZyS2s 0U3CzJevbjIT+ MC78RHEaSW86wEXveDQfv 8bqgVf9RfMcDZQxKYG3uZ lwQFtge4AmDYFkV84teUK bv9A7LDSiiJum xJRiSaCziCF1hO2rWCsks dqdp9cwlusmVzaqn2ugwk 50pY40S72kAFdtGLWuYVC zMCUiIHZhbGln zf4cvV0lPr3+XFFkfLF7p SM0hH4mHiVfVaI8NQfcB1 31LqZtdBAiMmuoi6izf7i rdXa9MhDcFSBl vwSsuYnuBXX0k2QeEm15X 29sIHdpZHRoPSIyMCUiIH FrmEtvwq8yqN4aWo0+PC9 ak6jtxy67oC48 dHI+DKNoMCS0iRpqPJvcO XUbrW3zBNdhSeR6MGFkKn XkyY77kUViKBzhLa7zrNr mxJlgCK9mHFEp unonb347HmDsr9cdNADjz FZfUUfwFDZ7V46zb0P3FW SgCOPyLCS8aHH5mX2tgKd nbjogbGVmdDsg tmUfaQcaMBnfIGuyP644K QCgrBrcFiWfmTOwD0hqqe DCKQ0uXhxruVI+PHRkIHN 0eWxlPSdwYWRk sE9hVNFeT0e6MzZeKjF2G QxqX5IbxxR3VMPpnIBhNK KpoKZChZ3flohyv2ljfig gIzAwMDAwMDt0 WGy1XILjlHhnUuAcIDU6A vN9JVI8vVLoaY3gxTscpk ujmZ0yNii+RklOOjwvdGQ +PQMcZZQ0rIjr JVhyCVGvrX5pDBXjW7a4P oFmPtP2HBqfF8AfosC8VH RuxPAiRJNxhDRRkJ5dxtx hi0htxkieJiQy JOMkNHk2DDz4UUPniKtxS gAfBTI9SeD3MZC9sDRdwO 4jcTwvmnmfnG6rMvj+TVJ OOjwvdGQ+PHRk WXH8aZvzHFvlUETseQ4jK HVmD6h6MpBmJdW6PRjxR3 JyiyM6YUKywKIgUGUckTN QxO8wvonzl8ba lwweIfDwQGInFUp9SUp4W TIplAhrBcAyRWA5RrM1RB J7iPBrsS5coJoiwypevD7 wOyc+KTW4ZCV9 YY05VE80F1QsHigpoVUse +PHRhYmxlIHdpZHRoPS mxFZIkOtLnuJakPS2bYy9 yZGVyLWNvbGxh Nl (more content not included)... Normal [facility] ED Note-Physicianon 07-22-20 ED Note-Physician Basic Information Time Seen: Laura Johnson PA-C 07/19/2021 10:35 Chief Complaint L sided dental pain since yesterday. Not seen by dentist. History of Present Illness This patient presents emergency department chief complaint of severe tooth ache. She states this started about 2:00 this morning. She states she tried acetaminophen with no relief. She is absolutely miserable. She denies any fevers chills or sweats. She denies any nausea vomiting diarrhea. Patient denies . She has no known allergies and does not routinely take any medications. She does smoke cigarettes a half a pack per day. Review of Systems Constitutional: Denies weight loss, fevers, chills, sweats, malaise Eyes: Denies visual changes, eye pain, double vision, scotomas, floaters ENT: Denies runny nose, epistaxis, sinus pain, ear pain, ringing in ears, sore throat, pain with swallowing. + toothache Cardiovascular: Denies chest pain, shortness of breath, orthopnea, edema, palpitations, loss of consciousness, claudication Respiratory: Denies cough, sputum production, wheezing, hemoptysis, shortness of breath, dyspnea on exertion Gastrointestinal: Denies abdominal pain, unintentional weight loss, difficulty swallowing, indigestion, bloating, cramping, loss of appetite, nausea, vomiting, diarrhea, constipation, hematochezia, melena Genitourinary: Denies any incontinence of urine, dysuria, hematuria, nocturia, polyuria, hesitancy, frequency, urgency, burning Musculoskeletal: Denies joint pain, morning stiffness, joint swelling, decreased range of motion, crepitus Integumentary: Denies any pruritus, rashes, lesions, wounds, petechiae Neurologic: Denies any changes in sight, smell, hearing, taste, seizures, headache, paresthesia, numbness, weakness, balance disturbance Psychiatric denies any depression, change in sleep patterns, anxiety, difficulty concentrating, paranoia, anhedonia, lack of energy, florencia Hematologic/lymphatic : Denies any purpura, petechiae, excessive bleeding, bruising Physical Exam Vitals & Measurements T: 36.7 ?C(Oral) HR: 79(Peripheral) RR: 16 BP: 140/88 SpO2: 100% HT: 163 cm HT: 163.0 cm WT: 91 kg WT: 91.0 kg BMI: 34.25 Vital Signs reviewed and noted. General: Alert, no acute distress, patient resting comfortably Skin: warm, intact, no pallor noted Head: Normocephalic, atraumatic Moth: Oral mucosa is pink and moist. Patient has tenderness on palpation to tooth #17. There is associated induration of the gingiva. There is mild edema. Eye: Normal conjunctiva Cardiac: Normal peripheral perfusion Respiratory: No acute distress Musculoskeletal: No deformity, full ROM. Neurological: alert and oriented, normal sensory and motor observed. Psychiatric: Cooperative Medical Decision Making Dental abscess, dental pain Assessment/Plan 1. Dental abscess (K04.7: Periapical abscess without sinus) Ordered: acetaminophen-oxycodo ne, 1 tab(s), Oral, q6hr as needed for pain, 12 tab(s), Refill(s) 0 2. Odontalgia (K08.89: Other specified disorders of teeth and supporting structures) Ordered: acetaminophen-oxycodo ne, 1 tab(s), Oral, q6hr as needed for pain, 12 tab(s), Refill(s) 0 3. Acute pain (R52: Pain, unspecified) Ordered: acetaminophen-oxycodo ne, 1 tab(s), Oral, q6hr as needed for pain, 12 tab(s), Refill(s) 0 Orders: acetaminophen-oxycodo ne, 2 tab(s), Tab, Oral, Once, Stop date 07/19/21 11:09:00 EST, STAT, Start date 07/19/21 11:09:00 EST ibuprofen, 600 mg = 1 tab(s), Tab, Oral, Once, Stop date 07/19/21 11:09:00 EST, STAT, Start date 07/19/21 11:09:00 EST, 07/19/21 11:09:00 EST ibuprofen, 600 mg = 1 tab(s), Oral, q6hr, # 40 tab(s), Refills(s) 0 penicillin V potassium, 500 mg = 1 tab(s), Oral, q6hr, # 40 tab(s), Refills(s) 0 Patient was interviewed and examined. The patient was medicated for pain. I discussed the discharge diagnosis, plan of care, and home-going prescriptions. I stressed the need for very close follow-up with dentist. Patient will be discharged home in stable condition. She is to return to the emergency department for any further problems or concerns. Medications Administered Given ibuprofen 600 mg Tab, 600 mg, Oral Percocet 325 mg-5 mg Tab, 2 tab(s), Oral Disposition Plan Patient Discharge Condition Stable Discharge Disposition Home Discharge Prescription List Prescriptions ibuprofen 600 mg Tab, 600 mg= 1 tab(s), Oral, q6hr penicillin V potassium 500 mg Tab, 500 mg= 1 tab(s), Oral, q6hr Percocet 5 mg-325 mg oral tablet, 1 tab(s), Oral, q6hr, PRN Follow-up With When Contact Information [facility]: [phone] In 3 days 07/22/2021 EST Additional Instructions: Dental: [facility] [phone] In 3 days 07/22/2021 EST Additional Instructions: Dental: [place] [facility] [phone] In 3 days 07/22/2021 EST Additional Instructions: Dental: [facility] [phone] In 3 days 07/22/2021 EST Additional Instructions: SASCHA ALEJANDRA I (more content not included)... Normal [facility] Comment on above: Result Comment: Elec tronically Signed By: Laura Johnson PA-C\.br\Date and Time Signed: 07/19/21 11:23 EST\.br\Electronically Co-Signed By: Reginald Esparza DO.br\Date and Time Co-Signed: 07/22/21 10:15 EST Consent for Treatmenton 07-01 Consent for Treatment [id number] .00CD:127 Normal [facility] Discharge Instructionson Discharge Instructions [id number] 1.00CD:127 Normal [facility] ED Clinical Summaryon 2020 ED Clinical Summary [place] [id number] ED Clinical Summary Person Information Name: EBONY PALOMARES [facility] Age: 25 Years : 1995 Sex: Female Language: German PCP: SASCHA ALEJANDRA DO Marital Status: Phone: [phone] Visit Id: Visit Reason: Dental pain; TOOTH/MOUTH PAIN SWELLING Speciality: Acuity: 4 Enc Type: Emergency Med Service: Emergency Arrival: 07/19/2021 10:29:50 Discharge: 07/19/2021 12:00:06 LOS: 000 01:31 Checkin: 07/19/2021 10:29:50 Checkout: 07/19/2021 12:00:06 Dispo Type: Home (Routine DC) EVENTS: Event Name Event Status Request Date/Time Start Date/Time Complete Date/Time Arrive Complete 07/19/2021 10:29:50 07/19/2021 10:29:50 07/19/2021 10:29:50 Document Home Meds Request 07/19/2021 10:29:50 Triage Complete 07/19/2021 10:29:50 07/19/2021 10:42:09 07/19/2021 10:42:09 Dr Exam Complete 07/19/2021 10:35:42 07/19/2021 10:35:42 07/19/2021 10:35:42 Registration Complete 07/19/2021 10:35:42 07/19/2021 10:36:41 07/19/2021 10:39:52 Bed Assign Complete 07/19/2021 10:36:41 07/19/2021 10:36:41 07/19/2021 10:36:41 RN Exam Complete 07/19/2021 10:36:41 07/19/2021 10:44:03 07/19/2021 10:44:03 Reg Complete Request 07/19/2021 10:39:52 Reg Bed Request Complete 07/19/2021 10:39:52 07/19/2021 10:39:52 07/19/2021 10:39:52 Meds Admin Complete 07/19/2021 11:09:52 07/19/2021 11:23:30 Discharge Complete 07/19/2021 11:12:16 07/19/2021 12:00:11 07/19/2021 12:00:11 Triage Start 07/19/2021 11:44:53 07/19/2021 11:44:53 Transfer Complete 07/19/2021 12:00:11 07/19/2021 12:00:11 07/19/2021 12:00:11 ADDRESS: [address] [place] [id number] [facility] DOC NOTES: MEDICAL INFORMATION: Prescriptions Given: New Medications Printed Prescriptions acetaminophen-oxycodo ne (Percocet 5 mg-325 mg oral tablet) 1 Tablets By Mouth every 6 hours as needed as needed for pain. Refills: 0. ibuprofen (ibuprofen 600 mg Tab) 1 Tablets By Mouth every 6 hours. Refills: 0. penicillin V potassium (penicillin V potassium 500 mg Tab) 1 Tablets By Mouth every 6 hours. Refills: 0. Medications to Continue with No Changes Other Medications multivitamin, ( Multivitamins) 1 Tablets By Mouth every day. PATIENT EDUCATION INFORMATION: Instructions: Dental Pain, Uwcn-ks-Txan; Dental Abscess, Pukl-bh-Ajcg Follow up: With: Address: When: [facility]: [phone] In 3 days 07/22/2021 With: Address: When: Dental: [facility] [phone] In 3 days 07/22/2021 With: Address: When: Dental: [facility] [phone] In 3 days 07/22/2021 With: Address: When: Dental: [facility] [phone] In 3 days 07/22/2021 With: Address: When: [facility] [place] [address] [place], [place] [id number] [phone] Business (1) In 3 days DIAGNOSIS: 1:Dental abscess; 2:Odontalgia; 3:Acute pain Normal [facility] ED Patient Education Noteon 07-19-2021 ED Patient Education Note Dentistry Dental Pain Dental pain may be caused by many things, including: ? Tooth decay (cavities or caries). ? Infection. ? The inner part of the tooth being filled with pus (abscess). ? Injury. Sometimes the cause of pain is unknown. Your pain can vary. It may be mild or severe. You may have it all the time, or it may occur only when you are: ? Chewing. ? Exposed to hot or cold temperature. ? Eating or drinking sugary foods or beverages, such as soda or candy. Follow these instructions at home: Medicines ? Take zohr-gcc-fyywihf and prescription medicines only as told by your doctor. ? If you were prescribed an antibiotic medicine, take it as told by your doctor. Do not stop taking the medicine even if you start to feel better. Eating and drinking ? Do not eat foods or drinks that cause you pain. These include: ? Very hot or very cold foods or drinks. ? Sweet or sugary foods or drinks. Managing pain and swelling ? Gargle with a salt-water mixture 3?4 times a day. To make this, dissolve ??1 tsp of salt in 1 cup of warm water. ? If told, put ice on the painful area of your face: ? Put ice in a plastic bag. ? Place a towel between your skin and the bag. ? Leave the ice on for 20 minutes, 2?3 times a day. Brushing your teeth ? [place] your teeth twice a day using a fluoride toothpaste. ? Floss your teeth once a day. ? Use a toothpaste made for sensitive teeth as told by your doctor. ? Use a soft toothbrush. General instructions ? Do not apply heat to the outside of your face. ? Watch your dental pain. Let your doctor know if there are any changes. ? Keep all follow-up visits as told by your doctor. This is important. Contact a doctor if: ? Your pain is not relieved by medicines. ? You have new symptoms. ? Your symptoms get worse. Get help right away if: ? You cannot open your mouth. ? You are having trouble breathing or swallowing. ? You have a fever. ? Your face, neck, or jaw is swollen. Summary ? Dental pain may be caused by many things, including tooth decay, injury, or infection. In some cases, the cause is not known. ? Your pain may be mild or severe. You may have pain all the time, or you may have it only when you eat or drink. ? Take mwla-krq-nwkjfhe and prescription medicines only as told by your doctor. ? Watch your dental pain for any changes. Let your doctor know if symptoms get worse. This information is not intended to replace advice given to you by your health care provider. Make sure you discuss any questions you have with your health care provider. Document Released: 01/03/2009 Document Revised: 11/13/2019 Document Reviewed: 07/31/2018 [employer] Patient Education ? 2020 [employer]. Dental Abscess A dental abscess is an area of pus in or around a tooth. It comes from an infection. It can cause pain and other symptoms. Treatment will help with symptoms and prevent the infection from spreading. Follow these instructions at home: Medicines ? Take zaby-zik-gsjklyl and prescription medicines only as told by your dentist. ? If you were prescribed an antibiotic medicine, take it as told by your dentist. Do not stop taking it even if you start to feel better. ? If you were prescribed a gel that has numbing medicine in it, use it exactly as told. ? Do not drive or use heavy machinery (like a ticket clerk) while taking prescription pain medicine. General instructions ? Rinse out your mouth often with salt water. ? To make salt water, dissolve ??1 tsp of salt in 1 cup of warm water. ? Eat a soft diet while your mouth is healing. ? Drink enough fluid to keep your urine pale yellow. ? Do not apply heat to the outside of your mouth. ? Do not use any products that contain nicotine or tobacco. These include cigarettes and e-cigarettes. If you need help quitting, ask your doctor. ? Keep all follow-up visits as told by your dentist. This is important. Prevent an abscess ? [place] your teeth every morning and every night. Use fluoride toothpaste. ? Floss your teeth each day. ? Get dental cleanings as often as told by your dentist. ? Think about getting dental sealant put on teeth that have deep holes (decay). ? Drink water that has fluoride in it. ? Most tap water has fluoride. ? Check the label on bottled water to see if it has fluoride in it. ? Drink water instead of sugary drinks. ? Eat healthy meals and snacks. ? Wear a mouth guard or face shield when you play sports. Contact a doctor if: ? Your pain is worse, and medicine does not help. Get help right away if: ? You have a fever or chills. ? Your symptoms suddenly get worse. ? You have a very bad headache. ? You have problems breathing or swallowing. ? You have trouble opening your mouth. ? You have swelling in your neck or close to your eye. Summary ? A dental abscess is an are (more content not included)... Normal [facility] ED Patient Summaryon 021 ED Patient Summary [place] [id number] Patient Discharge Instructions Person Information Name: EBONY PALOMARES Age: 25 Years Arrival Date: 07/19/2021 10:29:50 Discharge Diagnosis: 1:Dental abscess; 2:Odontalgia; 3:Acute pain Primary Care Physician: SASCHA ALEJANDRA DO Provider Information Primary Provider: Advanced Cartridge Loading Operator:None The exam and treatment you received in the Emergency Department were for an urgent problem and are not intended as complete care. It is important that you follow up with a doctor, nurse practitioner, or physician?s bilingual executive assistant for ongoing care. If your symptoms become worse or you do not improve as expected and you are unable to reach your usual health care provider, you should return to the Emergency Department. We are available 24 hours a day. EBONY PALOMARES Matthew has been given the following list of patient education materials, prescriptions and follow-up instructions: Follow-up Instructions: With: Address: When: [facility]: [phone] In 3 days 07/22/2021 With: Address: When: Dental: [facility] [phone] In 3 days 07/22/2021 With: Address: When: Dental: [employer] [facility] [phone] In 3 days 07/22/2021 With: Address: When: Dental: [facility] [phone] In 3 days 07/22/2021 With: Address: When: SASCHA ALEJANDRA [address] [place] [phone] Business (1) In 3 days In the event that this physician does not participate in your insurance network, please consult with your insurance company to find a nearby participating provider. Patient Education Materials: Dental Pain, Uuhr-pt-Ogjm; Dental Abscess, Cmyn-fd-Pzsl A MESSAGE TO ALL PATIENTS REGARDING OPIOIDS PRESCRIPTION OPIOIDS: WHAT YOU NEED TO KNOW Prescription opioids can be used to help relieve cyebqjoq-iz-hxasln pain and are often prescribed following a surgery or injury, or for certain health conditions. These medications can be an important part of the treatment but also come with serious risks. It is important to work with your healthcare provider to make sure you are getting the safest, most effective care. WHAT ARE THE RISKS AND SIDE EFFECTS OF OPIOID USE? Prescription opioids carry serious risks of addiction and overdose, especially with prolonged use. An opioid overdose, often marked by slowed breathing, can cause sudden . The use of prescription opioids can have a number of side effects as well, even when taken as directed: ? Tolerance?meaning you might need to take more of the medication for the same pain relief ? Physical dependence?meaning you have symptoms of withdrawal when a medication is stopped ? Increased sensitivity to pain ? Constipation ? Nausea, vomiting, and dry mouth ? Sleepiness and dizziness ? Confusion ? Depression ? Low levels of testosterone that can result in lower sex drive, energy, and strength ? Itching and sweating RISKS ARE GREATER WITH: ? History of drug misuse, substance use disorder, or overdose ? Mental health conditions (such as depression or anxiety) ? Sleep apnea ? Older age (65 years and older) ? Avoid alcohol while taking prescription opioids. Also, unless specifically advised by your health care provider, medications to avoid include: ? Benzodiazepines (such as Xanax or Valium) ? Muscle relaxants (such as Soma or Flexeril) ? Hypnotics (such as Ambien or Lunesta) ? Other prescription opioids KNOW YOUR OPTIONS Talk to your health care provider about ways to manage your pain that don?t involve prescription opioids. Some of these options may actually work better and have fewer risks and side effects. Options may include: ? Pain relievers such as acetaminophen, ibuprofen, and naproxen ? Some medication that are also used for depression or seizures ? Physical therapy and exercise ? Cognitive behavioral therapy, a psychological, goal-directed approach, in which patients learn how to modify physical, behavioral, and emotional triggers of pain and stress. IF YOU ARE PRESCRIBED OPIOIDS FOR PAIN: ? Never take opioids in greater amounts or more often than prescribed. ? Follow up with your primary health care provider. o Work together to create a plan on how to manage your pain. o Talk about ways to help manage your pain that don?t involve prescription opioids. o Talk about any and all concerns and side effects. ? Help prevent misuse and abuse o Never sell or share prescription opioids. o Never use another person?s prescription opioids. ? Store prescription opioids in a secure place and out of reach of others (this may include visitors, children, friends, and family). ? Safely dispose of unused prescription opioids: Find your community drug take-back program or your pharmacy mail-back program, or flush them down the toilet, following guidance from (more content not included)... Normal [facility] Vital Signs Date Time Vital Sign Value Performing Clinician Madhu nichols 03-23-2022 07:28-0400 Body temperature 97.88 [degF] [facility] 03-23-2022 07:28-0400 Diastolic blood pressure 90 mm[Hg] [facility] 03-23-2022 07:28-0400 Heart rate 79 /min [facility] 03-23-2022 07:28-0400 Respiratory rate 18 /min [facility] 03-23-2022 07:28-0400 SaO2% (BldA) [Mass fraction] 100 % [employer] [facility] 03-23-2022 07:28-0400 Systolic blood pressure 132 mm[Hg] [employer] [facility] Encounters Encounter Date Encounter Type Care Provider Facility Start: 04-14-2022 ambulatory Nino BUCIO [facility] Start: 03-23-2022 End: 03-23-2022 Emergency department patient visit Yovany Harkins Facility:[facility] Start: 03-23-2022 End: 03-23-2022 Emergency department patient visit [facility] ALEJANDRA [facility] Start: 07-19-2021 End: 07-19-2021 Emergency department patient visit Reginald Esparza Facility:[facility] Start: 07-19-2021 End: 07-19-[address] NONE LISTED REQUEST Facility: Payers Date Payer Category Payer Unknown [id number] 1995 Unknown [id number] 1995 Unknown [id number] 1995 Unknown [id number] 1959 Unknown [id number] Social History Date Type Detail Facility Start: 07-19-2021 Tobacco smoking status Heavy t obacco smoker (finding) [facility] Sex Assigned At Female [facility] Functional Status Date Assessment Result Facility 03-23-2022 Functional Status N/A [facility] Evaluation + Plan note 03-23-2022 Note Date & Type Note Facility 03-23-2022 Evaluation + Plan note Extrac adan from: Title:ED Note Author:Hola Dorsey PA-C te:03/23/22 Odontalgia (K08.89: Other sp ecified disorders of teeth and supporting structures) [facility] Hospital Discharge instructions 03-23-2022 Note Date & Type Note Facility 03-23-2022 Hospital Discharg e instructions Follow Up Care 03/23/2022 07:25:17 With:Dental: [facility] [phone] Address:Unknown When:03/26/2022 07:31:57 With:Dental: [facility] [phone] Address:Unknown When:03/26/2022 07:31:47 With:Dental: [facility] [phone] Address:Unknown When:03/26/2022 07:31:46 [facility] Hospital course Narrative Note Date & Type Note Facility Hospital course Narrative No data available for this section [facility] Progress note Note Date & Type Note Facility Progress note No data available for this section [facility] Summary Purpose Family History No Family History Records FoundNo Family History Records Found Advance Directives No Advanced Directives Records FoundNo Advanced Directives Records Found Additional Source Comments INFORMATION SOURCE (unrecogn ized section and content) DATE CREATED AUTHOR 07/20/2021 [facility] DATE CREATED AUTHOR AUTHOR'S ORGANIZ ATION 05/24/2022 [facility] Care Team (unrecognized sect ion and content) Personnel Name: [place] [facility] Address: [address] [place] [address] FOR RECORDS PERTAINING TO PATIENTS WHO ARE OR HAVE BEEN ENROLLED IN A CHEMICAL DEPENDENCY/SUBSTANCEABUSE PROGRAM, SOME INFORMATION MAY BE OMITTED. This clinical summary was aggregated from multiple sources. Caution should be exercised in using it in the provision of clinical care. This summary normalizes information from multiple sources, and as a consequence, information in this document may materially change the coding, format and clinical context of patient data. In addition, data may be omitted in some cases. CLINICAL DECISIONS SHOULD BE BASED ON THE PRIMARY CLINICAL RECORDS. [facility] [employer] [facility]. provides no warranty or guarantee of the accuracy or completeness of information in this document.
--- NOTE | 2023-10-25 16:05 | PC.NURSE ---
exposed to Flu at home
[2023-10-25 16:27] LABS: Influenza Virus A Antigen Negative; Influenza Virus B Antigen Positive; Internal Control Within Normal Limits
[2023-10-25 16:28] LABS: SARS-CoV-2 Ag NEGATIVE (NEGATIVE)
--- NOTE | 2023-10-25 16:44 | ED_ITS ---
Documented by User: ALEX Calix 10/25/23 16:46 HPI - URI/Sore Throat General Chief Complaint: Upper Respiratory Infection Stated Complaint: Upper RESPIRATORY INFECTION Time Seen by Provider: 10/25/23 16:32 Source: patient History of Present Illness HPI Narrative: Patient is a 28-year-old female who presents to the emergency department for flulike illness for the last 5 days. Her son had influenza B last week. She reports fevers, vomiting, body aches, cough and congestion. She has had diarrhea. She has no concern for . No medications taken prior to arrival. Related Data Previous Rx's ?Medication ?Instructions ?Recorded kajwqexcfwdkdje-uqsdavhvmxbhmvk-FA 10 ml PO Q6H PRN cold symptoms 10/25/23 2 mg-30 mg-10 mg/5 mL oral syrup #200 mL (Bromfed DM) ondansetron 4 mg disintegrating 4 mg PO Q6H PRN nausea and 10/25/23 tablet vomiting #12 tabs loratadine 5 mg-pseudoephedrine ER 1 tab PO Q12H PRN nasal congestion 10/27/23 120 mg tablet,extended #20 tabs release,12hr (Claritin-D 12 Hour) Allergies Allergy/AdvReac Type Severity Reaction Status Date / Time No Known Drug Allergies Allergy Verified 08/15/23 12:13 Review of Systems ROS Constitutional Reports: fever; Denies: chills Ears, nose, mouth, and throat Reports: nasal congestion; Denies: throat pain Respiratory Reports: cough; Denies: shortness of breath Gastrointestinal Reports: nausea, vomiting and diarrhea; Denies: abdominal pain Integumentary/Breast Denies: rash Neurological Reports: headache Exam Narrative Exam Narrative: Gen.: Awake, alert, in no distress Head: Normocephalic, atraumatic ENT: Moist mucous membranes, Bilateral TMs are bulging, no pharyngeal erythema, clear speech Respiratory: No respiratory distress, lungs clear bilaterally; No wheezing. Dry cough noted Cardio: Regular rate and rhythm Extremities: Moves extremities equally Psych: Normal mood and affect Neuro: No focal neuro deficit Skin: Warm, dry, intact Constitutional Vital Signs, click to edit/add: Last Vital Signs Temp 98.0 F 10/25/23 15:58 Pulse 95 H 10/25/23 15:58 Resp 18 10/25/23 15:58 BP 158/100 H 10/25/23 15:58 Pulse Ox 100 10/25/23 15:58 O2 Del Method Room Air 10/25/23 15:58 Course Vital Signs Vital signs: Vital Signs Temperature 98.0 F 10/25/23 15:58 Pulse Rate 95 H 10/25/23 15:58 Respiratory Rate 18 10/25/23 15:58 Blood Pressure 158/100 H 10/25/23 15:58 Pulse Oximetry 100 10/25/23 15:58 Oxygen Delivery Method Room Air 10/25/23 15:58 Temperature 98.0 F 10/25/23 15:58 Pulse Rate 95 H 10/25/23 15:58 Respiratory Rate 18 10/25/23 15:58 Blood Pressure 158/100 H 10/25/23 15:58 Pulse Oximetry 100 10/25/23 15:58 Oxygen Delivery Method Room Air 10/25/23 15:58 MDM - URI/Sore Throat MDM Narrative Medical decision making narrative: Patient is positive for influenza B. She has normal oxygen saturation, no wheezing. She is started on Bromfed-DM and Zofran for home. Decadron given in the ER. Follow-up with PCP and return to the ER if symptoms change or worsen Medical Records Attestation: I reviewed the patient's medical records. Lab Data Attestation: I reviewed the patient's lab results. Labs: Lab Results 10/25/23 Range/Units 16:03 Influenza Type A Ag Negative Influenza Type B Ag Positive A SARS-CoV-2 Ag (CV2AG) Negative (NEGATIVE) Discharge Plan Discharge Stand Alone Forms: Portal Instructions Chief Complaint: Upper Respiratory Infection Clinical Impression: Influenza B Patient Disposition: Home, Self-Care Time of Disposition Decision: 16:42 Condition: Good Prescriptions / Home Meds: New nepnrwjohpaucyq-jpcdzujbd-ND [Bromfed DM] 2-30-10 mg/5 mL syrup 10 ml PO Q6H PRN (Reason: cold symptoms) Qty: 200 0RF ondansetron 4 mg tablet,disintegrating 4 mg PO Q6H PRN (Reason: nausea and vomiting) Qty: 12 0RF Claritin-D 12 Hour 5-120 mg tablet extended release 12 hr 1 tab PO Q12H PRN (Reason: nasal congestion) Qty: 20 0RF Print Language: Anguillan Instructions: Influenza (ED) Referrals: Physician,Non-Staff, [Primary Care Provider] - 1 week Discharge Date/Time: 10/25/23 16:54 Documented by User: Shukri Phelan MD 10/27/23 10:46 HPI - URI/Sore Throat General Chief Complaint: Upper Respiratory Infection Stated Complaint: Upper RESPIRATORY INFECTION Time Seen by Provider: 10/25/23 16:32 Related Data Previous Rx's ?Medication ?Instructions ?Recorded phgltwlhasqefbl-kzillcesnqhtopn-YE 10 ml PO Q6H PRN cold symptoms 10/25/23 2 mg-30 mg-10 mg/5 mL oral syrup #200 mL (Bromfed DM) ondansetron 4 mg disintegrating 4 mg PO Q6H PRN nausea and 10/25/23 tablet vomiting #12 tabs loratadine 5 mg-pseudoephedrine ER 1 tab PO Q12H PRN nasal congestion 10/27/23 120 mg tablet,extended #20 tabs release,12hr (Claritin-D 12 Hour) Allergies Allergy/AdvReac Type Severity Reaction Status Date / Time No Known Drug Allergies Allergy Verified 08/15/23 12:13 Exam Constitutional Vital Signs, click to edit/add: Last Vital Signs Temp 98.0 F 10/25/23 15:58 Pulse 95 H 10/25/23 15:58 Resp 18 10/25/23 15:58 BP 158/100 H 10/25/23 15:58 Pulse Ox 100 10/25/23 15:58 O2 Del Method Room Air 10/25/23 15:58 Course Vital Signs Vital signs: Vital Signs Temperature 98.0 F 10/25/23 15:58 Pulse Rate 95 H 10/25/23 15:58 Respiratory Rate 18 10/25/23 15:58 Blood Pressure 158/100 H 10/25/23 15:58 Pulse Oximetry 100 10/25/23 15:58 Oxygen Delivery Method Room Air 10/25/23 15:58 Temperature 98.0 F 10/25/23 15:58 Pulse Rate 95 H 10/25/23 15:58 Respiratory Rate 18 10/25/23 15:58 Blood Pressure 158/100 H 10/25/23 15:58 Pulse Oximetry 100 10/25/23 15:58 Oxygen Delivery Method Room Air 10/25/23 15:58 MDM - URI/Sore Throat MDM Narrative Medical decision making narrative: Patient is positive for influenza B. She has normal oxygen saturation, no wheezing. She is started on Bromfed-DM and Zofran for home. Decadron given in the ER. Follow-up with PCP and return to the ER if symptoms change or worsen JK 10/27/23 the patient called and reported that the Bromfed is sold out at multiple pharmacies. I have E scripted her for Claritin-D instead. Lab Data Labs: Lab Results 10/25/23 Range/Units 16:03 Influenza Type A Ag Negative Influenza Type B Ag Positive A SARS-CoV-2 Ag (CV2AG) Negative (NEGATIVE) Discharge Plan Discharge Stand Alone Forms: Portal Instructions Chief Complaint: Upper Respiratory Infection Clinical Impression: Influenza B Patient Disposition: Home, Self-Care Time of Disposition Decision: 16:42 Condition: Good Prescriptions / Home Meds: New vfjpbadnmiwwbpz-kwifuhqlc-YC [Bromfed DM] 2-30-10 mg/5 mL syrup 10 ml PO Q6H PRN (Reason: cold symptoms) Qty: 200 0RF ondansetron 4 mg tablet,disintegrating 4 mg PO Q6H PRN (Reason: nausea and vomiting) Qty: 12 0RF Claritin-D 12 Hour 5-120 mg tablet extended release 12 hr 1 tab PO Q12H PRN (Reason: nasal congestion) Qty: 20 0RF Print Language: An[place] Instructions: Influenza (ED) Referrals: Physician,Non-Staff, MD [Primary Care Provider] - 1 week Discharge Date/Time: 10/25/23 16:54
[2023-10-25] MEDS: KETOROLAC TROMETHAMINE 10 MG TABLET PO (16:50)
[2023-10-25] MEDS: ONDANSETRON 4 MG RAPDIS TABLET SL (16:50)
[2023-10-25] MEDS: DEXAMETHASONE SOD PHOS 10 MG/ML VIAL PO (16:50)
== END 2023-10-25 16:54 | disposition home or self-care (01) ==
PROVIDERS: Emergency Provider Emergency Medicine Emergency Medical Services
DX: J10.1 Influenza due to other identified influenza virus with other respiratory manifestations (principal); Z20.822 Contact with and (suspected) exposure to COVID-19
CPT/HCPCS: 87804; 87811; 99284; J1100